=== PATIENT | male | born 1980 | race Caucasian/White ===

== ENCOUNTER 2017-03-01 05:00 | Inpatient (IN) | payer BC ==
--- NOTE | ~2017-03-01 | HP ---
Unit #: [id number] #: [id number] Patient: ASIA TANNER [id number] [place] [address] [id number] MR#: [id number] NAME: ASIA TANNER ROOM: 71 Age: 36 Sex: M Admission Date: 03/01/2017 : 1980 Attending Physician: Tyler Mccarthy M.D. Admitting Physician: Tyler Mccarthy M.D. Primary Care Physician: Primary Care Physician No HISTORY AND PHYSICAL HISTORY OF PRESENT ILLNESS Asia is a 36 year old admitted to [facility] because of his abuse of alcohol. PAST MEDICAL HISTORY 1. Long history of alcohol abuse. 2. History of withdrawal seizures. PAST SURGICAL HISTORY T and A. ALLERGIES No known drug allergies. SOCIAL HISTORY He smokes 1 pack per day. Drinks at least 12 beers and a pint of liquor on a daily basis. He denies illicit drug use. FAMILY HISTORY Medically noncontributory. REVIEW OF SYSTEMS CONSTITUTIONAL: No fever or chills. HEENT: Denies any sore throat, ear pain or runny nose. CARDIOVASCULAR: Denies chest pain, irregular heart rhythm or palpitations. CHEST: Denies shortness of breath or cough. No hemoptysis. GASTROINTESTINAL: Denies nausea, vomiting, diarrhea or chronic constipation. ENDOCRINE: Denies history of increased thirst or urination. No recent significant weight loss or gain. GENITOURINARY: Denies dysuria, frequency, or hematuria. SKIN: Denies any rashes. HEMATOLOGIC: Denies history of increased bleeding or bruising. MUSCULOSKELETAL: Denies any hot, swollen joints. No generalized muscle pain. NEUROLOGIC: Denies problems with vision or speech. No frequent, severe headaches. No numbness, tingling or weakness in any extremities. Denies loss of bladder or bowel control. CURRENT MEDICATIONS Detox protocol. PHYSICAL EXAMINATION Unit #: [id number] #: [id number] Patient: ASIA TANNER GENERAL: Alert, well-nourished, in no apparent distress. VITAL SIGNS: Blood pressure 126/80, heart rate 77, respirations 16, temperature 98.6. WEIGHT: 185. HEIGHT: 5 feet 10 inches. SKIN: Warm and dry without rash or lesion. HEENT: Normocephalic. TMs not viewed. Oral and nasal passages clear. Conjunctivae clear. PERRLA. EOMs intact. NECK: Supple without lymphadenopathy or thyromegaly. HEART: Regular rate and rhythm without murmur. LUNGS: Clear. ABDOMEN: Soft, nontender. : Not done. EXTREMITIES: No evidence of cyanosis, clubbing or edema. Moves all without focal deficit. NEUROLOGICAL: Grossly within normal limits. Cranial Nerves: II: Visual chaney are intact. III, IV AND : Extraocular movements are intact. Pupils are equal, round and reactive to light. V: Facial sensation is grossly normal. VII: Facial movements and expression are normal. VIII: Auditory acuity grossly intact. IX, X: Uvula is midline. Phonation is normal. XI: Patient shrugs shoulders and turns head normally. XII: Tongue protrudes in the midline. Sensory and Motor Function: Sensory and motor sensation is grossly normal. Motor: moves all extremities well. Coordination: Gait is normal. Deep Tendon Reflexes: Intact. IMPRESSION Psychiatric admission. RECOMMENDATIONS PSYCHIATRIC: Per psychiatrist. MEDICAL: See no contraindications to participate in facility's activities. MEDICAL PROGNOSIS Good. MEDICAL CONDITION Stable. Dictated by... Natividad Mast P.A.-C. for Caprice Sanchez/janeen TD: 03/01/2017 20:04 JOB #: [id number] Unit #: [id number] #: [id number] Patient: ASIA TANNER HISTORY AND PHYSICAL Page 1 of 1 X Natividad Mast X HISTORY AND PHYSICAL
--- NOTE | ~2017-03-01 | PN ---
Unit #: [id number] #: [id number] Patient: ASIA TANNER [id number] [facility] [address] [place] [address] [id number] MR#: [id number] NAME: ASIA TANNER ROOM: P178 Age: 36 Sex: M Admission Date: 03/01/2017 : 1980 Attending Physician: Tyler Mccarthy M.D. Admitting Physician: Tyler Mccarthy M.D. Primary Care Physician: Primary Care Physician Lashell BECERRA PROGRESS NOTES DATE 03/05/2017 DISCUSSION The patient is in brighter spirits today. He continues on one-to-one precautions but is more active within the therapeutic milieu. Should he sustain progress we may be able to DC his one-to-one precautions by tomorrow but we will continue suicidal precautions and VTS monitoring given events earlier in his hospitalization. Dictated by... Tyler Mccarthy M.D. CB/mumtaz TD: 03/06/2017 02:40 JOB #: [id number] [facility] PROGRESS NOTES Page 1 of 1 X Tyler Mccarthy MD PROGRESS NOTE
--- NOTE | ~2017-03-01 | PN ---
Unit #: [id number] #: [id number] Patient: ASIA TANNER [id number] [facility] [address] [place] [address] [id number] MR#: [id number] NAME: ASIA TANNER ROOM: P178 Age: 36 Sex: M Admission Date: 03/01/2017 : 1980 Attending Physician: Tyler Mccarthy M.D. Admitting Physician: Tyler Mccarthy M.D. Primary Care Physician: Primary Care Physician Lashell BECERRA PROGRESS NOTES DATE 03/06/2017 DISCUSSION The patient is seems brighter today and can contract for safety inside the hospital. We will discontinue his one-to-one precautions, continuing the BTS. He is requesting "something for anxiety" and we will add Vistaril 50 mg every 6 hours p.r.n. anxiety. Dictated by... Tyler Mccarthy M.D. CB/wilfrido TD: 03/06/2017 16:52 JOB #: [id number] [facility] PROGRESS NOTES Page 1 of 1 X Tyler Mccarthy MD PROGRESS NOTE
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
--- NOTE | ~2017-03-01 | DS ---
Unit #: [id number] #: [id number] Patient: ASIA TANNER [id number] [facility] [address] [place] [address] [id number] I MR#: [id number] NAME: ASIA TANNER ROOM: 78 Age: 36 Sex: M Admission Date: 03/01/2017 : 1980 Discharge Date: 03/07/2017 Attending Physician: Tyler Mccarthy M.D. Primary Care Physician: Primary Care Physician No DISCHARGE SUMMARY REASON FOR ADMISSION The patient is a 36-year-old white male, admitted with recurrence of alcohol dependence. HOSPITAL COURSE The patient was admitted to the [facility] unit and placed on suicide precautions. A routine detoxification protocol for alcohol was initiated. On 03/01/2017, the patient was found with a hospital gown wrapped around his neck. He was therefore placed on one-to-one precautions at all times and one-to-one was finally discontinued on 03/04/2017. The patient was begun on Vistaril 50 mg q.6 hours p.r.n. anxiety. His mood had brightened considerably by that point and by 03/07/2017, the patient was in bright spirits. He denied suicidal ideation and as per his request, discharge was ordered. FINAL DIAGNOSES Alcohol use disorder, substance-induced mood disorder. DISPOSITION ON DISCHARGE The patient is discharged on following medications; Vistaril 50 mg q.6 hours p.r.n. anxiety. DISCHARGE INSTRUCTIONS No dietary or physical restrictions were placed on the patient at the time of discharge. FOLLOWUP Followup will take place through the auspices of community mental health resources. It is also recommended that the patient attend the chemical dependency intensive outpatient program provided this facility. PROGNOSIS His prognosis is considered fair. Dictated by... Tyler Mccarthy M.D. CB/iselal TD: 03/07/2017 23:40 JOB #: [id number] Unit #: [id number] #: [id number] Patient: ASIA TANNER DISCHARGE SUMMARY Page 1 of 1 X Tyler Mccarthy MD X DISCHARGE SUMMARY
--- NOTE | ~2017-03-01 | PN ---
Unit #: [id number] #: [id number] Patient: ASIA TANNER [id number] [facility] [address] [place] [address] [id number] I MR#: [id number] NAME: ASIA TANNER ROOM: 71 Age: 36 Sex: M Admission Date: 03/01/2017 : 1980 Attending Physician: Tyler Mccarthy M.D. Admitting Physician: Tyler Mccarthy M.D. Primary Care Physician: Primary Care Physician Lashell BECERRA PROGRESS NOTES DATE 03/02/2017 DISCUSSION The patient continues to complain of significant symptoms of alcohol withdrawal and is complaining of a great deal of fatigue during today's interview. He is also reporting some significant GI distress. We continue treatment for alcohol detox. Dictated by... Tyler Mccarthy M.D. /janeen TD: 03/02/2017 15:35 JOB #: [id number] [facility] PROGRESS NOTES Page 1 of 1 X Tyler Mccarthy MD PROGRESS NOTE
--- NOTE | ~2017-03-01 | PA ---
Unit #: [id number] #: [id number] Patient: ASIA TANNER [id number] [place] [address] [id number] MR#: [id number] NAME: ASIA TANNER ROOM: P171 Age: 36 Sex: M Admission Date: 03/01/2017 : 1980 Date of Assessment: 03/01/2017 Attending Physician: Tyler Mccarthy M.D. Admitting Physician: Tyler Mccarthy M.D. Primary Care Physician: Primary Care Physician No PSYCHIATRIC ASSESSMENT IDENTIFYING INFORMATION The patient is a 36-year-old white male admitted with increasing suicidal ideation and alcohol abuse. CHIEF COMPLAINT None given. INFORMANT(S) Patient, reliability is fair. HISTORY OF PRESENT ILLNESS The patient is a 36-year-old white male last admitted to this facility in 2014. He completed the intensive outpatient program and maintained sobriety for some time though reports a recent relapse approximately 1 month ago. The patient had texted his mother last evening voicing suicidal ideation related to his recent relapse. He has been drinking 2 to 3 pints of vodka and beer on a daily basis. He denies abuse of other psychiatric substances. The patient was reporting positive suicidal ideation with plan to cut his wrist using a wooden box maker. He had been previously hospitalized and prescribed Celexa, but at this time is compliant with no prescribed psychotropic medications. PAST PSYCHIATRIC HISTORY As noted previously, the patient was treated at this facility in August of 2015 and (1) __ intensive outpatient program. PAST MEDICAL HISTORY The patient was treated for gonorrhea during his previous admission to this facility. He has no other chronic medical problems. MEDICATIONS None. ALLERGIES None. FAMILY HISTORY Noncontributory. SOCIAL HISTORY The patient is currently living alone and is unemployed. He reports alcohol use as noted previously and is a smoker. MENTAL STATUS EXAMINATION Unit #: [id number] #: [id number] Patient: ASIA TANNER Examination at this time reveals the patient to be a well-developed well-nourished white male appearing his stated age. He appears to be in significant physical distress related to alcohol withdrawal. He is awake, alert, and oriented in all spheres. His mood is dysphoric, his affect blunted. Speech is generally well-coherent. There are no gross deficits in memory or cognition noted. Intelligence is judged to be in the average range based on fund of knowledge. The patient is cooperative throughout the interview. He is continuing to endorse positive suicidal ideation with plan to cut his wrist using a wooden box maker. He denies homicidal ideation. He denies any psychotic symptoms. His judgment and insight appear to be intact. ASSETS AND LIABILITIES The patient's assets: Motivation for change. Liabilities: Lack of resources. DIAGNOSTIC IMPRESSION 1. Alcohol dependence. 2. Dysthymic disorder. TREATMENT PLAN The patient remains hospitalized for safety and stabilization. He has been placed on routine detoxification protocol and reinitiation of psychotropic medications will be considered as the patient's detox progresses. Suicide precautions are in place. ESTIMATED LENGTH OF STAY 5 to 7 days. Dictated by... Tyler Mccarthy M.D. /constanza TD: 03/01/2017 14:11 JOB #: [id number] PSYCHIATRIC ASSESSMENT Page 1 of 1 X Tyler Mccarthy MD X PSYCHIATRIC ASSESSMENT
--- NOTE | ~2017-03-01 | PN ---
Unit #: [id number] #: [id number] Patient: ASIA TANNER [id number] [facility] [address] [place] [address] [id number] I MR#: [id number] NAME: ASIA TANNER ROOM: [facility] Age: 36 Sex: M Admission Date: 03/01/2017 : 1980 Attending Physician: Tyler Mccarthy M.D. Admitting Physician: Tyler Mccarthy M.D. Primary Care Physician: Primary Care Physician Lashell WADE NOTES DATE 03/03/2017 DISCUSSION The patient is now on one-to-one precautions after he had made a suicide bid yesterday by wrapping a hospital gown around his neck. The patient reports that he is hopeless today stating that he has "tried everything." Yet at the same time, the patient is gently but firmly confronted regarding the fact that he has not so much has been attending AA meetings during his period of time outside the hospital. The patient is a bit more hopeful but will remain on one-to-one precautions for the time being per day concerns regarding his safety. Dictated by... Tyler Mccarthy M.D. CB/janeen TD: 03/03/2017 19:32 JOB #: [id number] [facility] WADE NOTES Page 1 of 1 X Tyler Mccarthy MD X PROGRESS NOTE
[2017-03-02 10:02] LABS: BASOPHIL# 0.1 X10e3 (0-0.3); BASOPHIL% 1.1 % (0-2.5); EOSINOPHIL# 0.5 X10e3 (0-0.7); EOSINOPHIL% 8.4 % (0.0-7.0); HEMATOCRIT 39.2 % (38.0-50.0); HEMOGLOBIN 13.5 gm/dL (13.0-16.0); LYMPHOCYTE% 35.3 % (17.0-45.0); MEAN CELL VOLUME 88.1 FL (83-96); MEAN CORPUSCULAR HEMOGLOBIN 30.3 PG (28-34); MEAN CORPUSCULAR HGB CONC 34.4 g/dL (30-36); MEAN PLATELET VOLUME 7.9 FL (6.5-11.5); MONOCYTE# 0.4 X10e3 (0-1.0); MONOCYTE% 6.9 % (3.0-12.0); NEUTROPHIL# 2.7 X10e3 (1.5-7.1); NEUTROPHIL% 48.3 % (40-75); PLATELET COUNT 157 X10e3 (140-420); RED BLOOD COUNT 4.46 X10e (3.90-5.60); RED CELL DISTRIBUTION WIDTH 12.9 % (11.0-15.5); WHITE BLOOD COUNT 5.6 X10e3 (4.0-10.5)
[2017-03-02 10:04] LABS: DIFF IND NO
[2017-03-02 10:21] LABS: ALBUMIN SERUM 3.7 g/dL (3.5-5.0); CALCIUM SERUM 8.8 mg/dL (8.4-10.2); GLOM FILT RATE Estimated 97.1 mL/min (>60); POTASSIUM 3.6 mmol/L (3.5-5.1); PROTEIN TOTAL SERUM 6.1 g/dL (6.0-8.3)
[2017-03-03 09:59] LABS: URINE APPEARANCE CLEAR; URINE BILIRUBIN NEG (NEG); URINE BLOOD NEG (NEG); URINE COLOR DK YELLOW; URINE GLUCOSE NEG (NEG); URINE KETONE NEG (NEG); URINE LEUKOCYTE ESTERASE NEG (NEG); URINE NITRATE NEG (NEG); URINE PH 6.5 (5-8); URINE PROTEIN NEG (NEG); URINE SPECIFIC GRAVITY 1.018 (1.003-1.035); URINE UROBILINOGEN 0.2 MG/DL (NEG)
[2017-03-03 10:07] LABS: AMPHETAMINE NEG (NEG); BARBITURATES NEG (NEG); BENZODIAZEPINES POS (NEG); COCAINE NEG (NEG); MARIJUANA NEG (NEG); OPIATES NEG (NEG); TRICYCLIC ANTIDEPRESSANTS NEG (NEG); U METHADONE NEG (NEG)
== END 2017-03-07 15:40 | DRG 897 ==
LOC: P1E 06:55
PROVIDERS: Specialist
PROC: HZ2ZZZZ Detoxification Services for Substance Abuse Treatment (ICD-10-PCS; principal; 2017-03-01)
DX: F10.20 Alcohol dependence, uncomplicated (principal); R45.851 Suicidal ideations; F17.210 Nicotine dependence, cigarettes, uncomplicated
CPT/HCPCS: 80053; 80307; 81003; 85025; 86592